=== PATIENT | female | born 1980 ===

== ENCOUNTER 2018-05-13 12:49 | Emergency (ER) | payer SELFPAY ==
[2018-05-13 12:49] VITALS: BMI 28.3
== END 2018-05-13 13:20 | disposition left against medical advice (07) ==
LOC: C.ER 12:49
DX: Z02.89 Encounter for other administrative examinations (principal); Z00.00 Encounter for general adult medical examination without abnormal findings

== ENCOUNTER 2018-05-13 13:35 | Inpatient (IN) | payer OTHER ==
[2018-05-13 13:36] VITALS: BMI 28.3
[2018-05-13 14:57] LABS: BASO % 0.9 % (0.0-2.0); EOS # 0.3 K/uL (0.0-0.7); EOS % 5.7 % (0.0-4.0); HEMOGLOBIN 10.2 g/dL (11.0-16.0); LYMPH # 1.8 K/uL (1.0-4.3); LYMPH % 37.8 % (20.0-40.0); MEAN CELL VOLUME 80.9 fL (81.0-99.0); MEAN CORPUSCULAR HEMOGLOBIN 26.4 pg (27.0-31.0); MEAN CORPUSCULAR HGB CONC 32.7 g/dL (33.0-37.0); MEAN PLATELET VOLUME 7.2 fL (7.2-11.7); MONO # 0.6 K/uL (0.0-0.8); NEUT # 2.1 K/uL (1.8-7.0); NEUT % 43.6 % (50.0-75.0); RBC 3.85 Mil/uL (3.80-5.20); RED CELL DISTRIBUTION WIDTH 16.7 % (11.5-14.5); WHITE BLOOD COUNT 4.8 K/uL (4.8-10.8)
[2018-05-13 14:57] LABS: HCG,QUALITATIVE URINE NEGATIVE (NEGATIVE)
[2018-05-13 15:08] LABS: ALB/GLOB RATIO 1.4 (1.0-2.1); ALT/SGPT 38 U/L (9-52); AST/SGOT 29 U/L (14-36); BLOOD UREA NITROGEN 22 mg/dL (7-17); CALCIUM 9.3 mg/dl (8.6-10.4); GFR NON-AFRICAN AMERICAN > 60
[2018-05-13 15:14] LABS: BARBITURATES, UR NEGATIVE (NEGATIVE); BENZODIAZEPINES, UR NEGATIVE (NEGATIVE); PHENCYCLIDINE, UR NEGATIVE (NEGATIVE)
[2018-05-13 15:22] LABS: OPIATES, UR POSITIVE (NEGATIVE); SQUAMOUS EPITHIAL 7 /hpf (0-5); URINE BACTERIA RARE (<OCC); URINE BILIRUBIN NEGATIVE (NEGATIVE); URINE BLOOD NEGATIVE (NEGATIVE); URINE CLARITY Hazy (Clear); URINE COLOR Yellow (YELLOW); URINE GLUCOSE (UA) NORMAL (Normal); URINE LEUKOCYTE ESTERASE TRACE Leu/uL (Negative); URINE PROTEIN NEGATIVE (NEGATIVE); URINE UROBILINOGEN NORMAL mg/dL (0.2-1.0)
--- NOTE | 2018-05-13 17:21 | PCM.BM ---
Treatment Plan Problems - Problems identified on initial assessmt altered family process Date Initiated: 05/13/18 Time Initiated: 17:19 Assessment reference: NA Status: Active chronic low self esteem Assessment reference: NA denial Date Initiated: 05/13/18 Time Initiated: 17:21 Assessment reference: NA Treatment assets and liabiliti Patient Assests: cooperative, educated, self-reliant, ADL independent, negotiates basic needs, cognitively intact Patient Liabilities: substance abuse - Milieu Protocol Maintain good personal hygiene: daily Encourage regular showers, daily Remind patient to perform daily oral care, daily Assist patient to perform ADL's Conduct patient checks and document Observation sheet: Q15 minutes Maintain personal safety: every shift Educate patient to report safety concerns to staff, every shift Monitor environment for contraband/sharps Medication safety: Monitor for expected outcome, potential side effects: every shift, Assess barriers to learning: every shift, Assess readiness for medication education: every shift
--- NOTE | 2018-05-13 20:47 | C.PDOC ---
History Of Present Illness 38 y/o female comes in requesting heroin detox. States she uses 30 bags a day IV. Last use was late last night. Denies chest pain, SOB, fever, or cough. Patient also denies alcohol and tobacco use. Chief Complaint (Nursing): Substance Abuse History Per: Patient History/Exam Limitations: no limitations Onset/Duration Of Symptoms: Days Current Symptoms Are (Timing): Still Present Past Medical History Reviewed: Historical Data, Nursing Documentation, Vital Signs Vital Signs: Last Vital Signs Temp 97.9 F 05/13/18 16:09 Pulse 64 05/13/18 16:09 Resp 18 05/13/18 16:09 BP 144/84 05/13/18 16:09 Pulse Ox 99 05/13/18 16:09 - Medical History PMH: Anxiety, Depression, HTN, Post Traumatic Stress Disorder Denies: Diabetes, Hepatitis, HIV, Chronic Kidney Disease, Seizures, Sexually Transmitted Disease Surgical History: Appendectomy Family History: States: No Known Family Hx - Social History Hx Alcohol Use: No Hx Substance Use: Yes Review Of Systems Except As Marked, All Systems Reviewed And Found Negative. Constitutional: Negative for: Fever Cardiovascular: Negative for: Chest Pain Respiratory: Negative for: Cough, Shortness of Breath Psych: Positive for: Other (Heroin abuse) Physical Exam - Physical Exam Appears: Non-toxic, No Acute Distress Skin: Warm, Dry Head: Atraumatic, Normacephalic Eye(s): bilateral: Normal Inspection Oral Mucosa: Moist Neck: Supple Cardiovascular: Rhythm Regular, No Murmur Respiratory: Normal Breath Sounds, No Rales, No Rhonchi, No Wheezing Gastrointestinal/Abdominal: Soft, No Tenderness Extremity: Other (Well healing track mckoy on both arms) Extremity: Bilateral: Normal Color And Temperature, Normal ROM Neurological/Psych: Oriented x3, Normal Speech ED Course And Treatment - Laboratory Results Result Diagrams: 05/13/18 14:53 05/13/18 14:53 Lab Results: Total Bilirubin 0.3 mg/dL (0.2-1.3) 05/13/18 14:53 AST 29 U/L (14-36) 05/13/18 14:53 ALT 38 U/L (9-52) 05/13/18 14:53 Alkaline Phosphatase 69 U/L (38-126) 05/13/18 14:53 Total Protein 7.0 g/dL (6.3-8.3) 05/13/18 14:53 Albumin 4.0 g/dL (3.5-5.0) 05/13/18 14:53 Globulin 2.9 gm/dL (2.2-3.9) 05/13/18 14:53 Albumin/Globulin Ratio 1.4 (1.0-2.1) 05/13/18 14:53 Urine Color Yellow (YELLOW) 05/13/18 14:44 Urine Clarity Hazy (Clear) 05/13/18 14:44 Urine pH 5.0 (5.0-8.0) 05/13/18 14:44 Ur Specific [place] 1.023 (1.003-1.030) 05/13/18 14:44 Urine Protein Negative mg/dL (NEGATIVE) 05/13/18 14:44 Urine Glucose (UA) Normal mg/dL (Normal) 05/13/18 14:44 Urine Ketones Negative mg/dL (NEGATIVE) 05/13/18 14:44 Urine Blood Negative (NEGATIVE) 05/13/18 14:44 Urine Nitrate Negative (NEGATIVE) 05/13/18 14:44 Urine Bilirubin Negative (NEGATIVE) 05/13/18 14:44 Urine Urobilinogen Normal mg/dL (0.2-1.0) 05/13/18 14:44 Ur Leukocyte Esterase Trace Ang/uL (Negative) 05/13/18 14:44 Urine WBC (Auto) 2 /hpf (0-5) 05/13/18 14:44 Urine RBC (Auto) 1 /hpf (0-3) 05/13/18 14:44 Ur Squamous Epith Cells 7 /hpf (0-5) H 05/13/18 14:44 Urine Bacteria Rare (<OCC) 05/13/18 14:44 Urine HCG, Qual Negative (NEGATIVE) 05/13/18 14:44 Urine HCG, Qual Negative (NEGATIVE) 05/13/18 14:44 O2 Sat by Pulse Oximetry: 99 (RA) Pulse Ox Interpretation: Normal Medical Decision Making Medical Decision Making: Plan: --Labs --UA --Catapres 0.1 mg PO --Imodium 2 mg PO --Zofran 4 mg PO --Maalox 30 ml PO Patient is medically cleared for evaluation. Disposition - Disposition Disposition: HOSPITALIZED Disposition Time: 15:25 Condition: STABLE - Clinical Impression Clinical Impression: Drug dependence - Scribe Statement The provider has reviewed the documentation as recorded by the Piyushibe Tawana Mg Provider Attestation: All medical record entries made by the Piyushibe were at my direction and personally dictated by me. I have reviewed the chart and agree that the record accurately reflects my personal performance of the history, physical exam, medical decision making, and the department course for this patient. I have also personally directed, reviewed, and agree with the discharge instructions and disposition.
[2018-05-14] MEDS ORDERED: Prazosin HCL 2 mg PO PRN (09:38)
[2018-05-14] MEDS: buPROPion 150 mg/24 Hours XL Tab PO SCH (10:44)
--- NOTE | 2018-05-14 10:57 | PCM.PSYCH ---
Initial Psychiatric Evaluation - Initial Psychiatric Evaluation Type of Admission: Voluntary Legal Status: Capacity Chief Complaint (in patient's own words): I want to detox from using heroin. 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 Patient states she has been using heroin for the past year following her son committing suicide. Patient states she uses 30 bags of heroin daily via IV. Her last use was 1 day prior to admission. Patient also admits to using a few bags of cocaine via IV. Patient has never tried detox, rehab. Patient has a history of anxiety, depression, and PTSD following the passing of her son. She was psychiatrically hospitalized a year ago at [facility] and received follow up care at her primary doctor in [facility]. Patient is unsure of her medications she is currently on. patient denies suicidal/homicidal thoughts, hallucinations. Patient denies tobacco and ETOH use. Patient presently is stating she is having back pain, chills, abdominal cramping. PMHx: None Meds: Unsure Allergies: NKDA PSHx: None Current Medications: Active Medications Generic Name Dose Route Start Last Admin Trade Name Freq PRN Reason Stop Dose Admin Al Hydrox/Mg Hydrox/Simethicone 30 ml 05/13/18 16:44 Maalox 30 Ml PO TID PRN Indigestion / Heartburn Bupropion HCl 150 mg 05/14/18 10:00 05/14/18 10:44 Wellbutrin Xl PO 150 mg DAILY KIEL Administration Clonidine HCl 0.1 mg 05/13/18 16:44 Catapres PO Q4 PRN COWS Score More or Equal to 5 Escitalopram Oxalate 5 mg 05/14/18 10:00 05/14/18 10:44 Lexapro PO 5 mg DAILY KIEL Administration Hydroxyzine HCl 50 mg 05/14/18 09:38 05/14/18 10:45 Atarax PO 50 mg Q6H PRN Administration Anxiety Loperamide HCl 2 mg 05/13/18 16:44 Imodium PO Q8 PRN Diarrhea Methadone HCl 20 mg 05/14/18 10:00 05/14/18 09:08 Methadone PO 05/18/18 09:59 20 mg Q24H KIEL Administration Taper Methadone HCl 5 mg 05/14/18 18:00 Methadone PO 05/18/18 18:01 QPM KIEL Ondansetron HCl 4 mg 05/13/18 16:44 Zofran Tab PO Q8 PRN Nausea/Vomiting Prazosin HCl 2 mg 05/14/18 09:38 Minipress PO HS PRN Insomnia Quetiapine Fumarate 50 mg 05/14/18 22:00 Seroquel PO HS KIEL Past Psychiatric History - Past Psychiatric History Previous Treatment History: Inpatient Prior Psychiatric Treatment: [facility] Pertinent Medical Hx (Current Medical&Sleep Prob, Allergies): Allergies Allergy/AdvReac Type Severity Reaction Status Date / Time No Known Allergies Allergy Verified 06/12/17 22:43 Atorvastatin [Lipitor] 10 mg PO DIN #7 tab 06/30/17 Bupropion HCl [Wellbutrin XL] 300 mg PO DAILY #14 t24 06/30/17 Multimineral/Multivitamin [Therapeutic-M Tab] 1 tab PO 0800 #7 tab 06/30/17 Paroxetine HCl [Paxil Cr] 50 mg PO HS #30 tab.er.24h 06/30/17 QUEtiapine [Seroquel] 25 mg PO HS PRN #14 tab 06/30/17 Zaleplon [Sonata] 15 mg PO HS PRN #45 cap 06/30/17 hydrOXYzine Pamoate [Vistaril] 50 mg PO TID PRN #45 cap 06/30/17 Review of Systems - Constitutional Constitutional: Chills, Sweats. absent: Fever, Weakness, Malaise - Psychiatric Psychiatric: Anxiety, Depression. absent: Difficulty Concentrating, Hallucinations, Homicidal Ideation, Mood Swings, Panic Attacks, Suicidal Ideation, Visual Hallucinations Mental Status Examination - Personal Presentation Personal Presentation: Looks stated age - Affect Affect: Broad - Motor Activity Motor Activity: Calm - Reliability in Providing Information Reliability in Providing Information: Good - Speech Speech: Organized - Mood Mood: Depressed - Formal Thought Process Formal Thought Process: No Impairment - Obsessions/Compulsions Obsessions: None Compulsions: None - Cognitive Functions Orientation: Person, Place, Situation, Time Sensorium: Alert - Strength & Assets Inventory Strength & Assets Inventory: Family support DSM 5 DX - DSM 5 DSM 5 Diagnosis: Opioid use disorder, severe Opioid withdrawal Cocaine use disorder, severe Cocaine withdrawal - Recommended/Plan of Treatment Treatment Recommendations and Plan of Treatment: Taper with Methadone Seroquel 50 mg PO HS Lexapro 5 mg PO daily Bupropion XL 150 mg PO daily PRN meds All risks, benefits and alternatives of the meds discussed, and the pt agreed and understood. Attend groups and activities Supportive therapy and psychoeducation GA for abstinence CBT for relapse prevention Encourage MAT Refer to rehab or IOP, and self-help groups Teach healthy lifestyle methods, i.e. diet, exercise, meditation Projected ELOS: 35
[2018-05-14] MEDS: Aluminum Hydroxide/Magnesium Hydroxide Susp (30 mL) PO PRN (19:35)
[2018-05-15] MEDS: buPROPion 150 mg/24 Hours XL Tab PO SCH (10:52)
--- NOTE | 2018-05-15 12:07 | PCM.PYCHPN ---
Psychiatric Progress Note - Psychiatric Progress Note Medication Change: Yes Medical Record Reviewed: Yes Mental Status Examination - Cognitive Function Orientation: Person, Place, Situation, Time - Mood Mood: Depressed - Affect Affect: Broad - Formal Thought Process Formal Thought Process: No Impairment
[2018-05-15] MEDS: Aluminum Hydroxide/Magnesium Hydroxide Susp (30 mL) PO PRN (21:01)
[2018-05-16] MEDS: buPROPion 150 mg/24 Hours XL Tab PO SCH (10:48)
[2018-05-16 20:22] VITALS: O2SAT 100
--- NOTE | 2018-05-17 09:34 | PCM.PYCHDC ---
Mental Status Examination - Mental Status Examination Orientation: Person, Place, Situation, Time Memory: Intact Mood: Anxious Affect: Constricted Speech: Appropriate Attention: WNL Concentration: WNL Association: WNL Fund of Knowledge: WNL Formal Thought Process: No Impairment Suicidal Ideation: No Current Homicidal Ideation?: No Discharge Summary - Discharge Note Consultations:: List each consultation separately and include: 1. Reason for request. 2. Findings. 3. Follow-up Summary of Hospital Course include:: 1. Description of specific treatment plan utilized for patients during their course of treatmen. 2. Summarize the time- course for resolution of acute symptoms and/or regressed behaviors. 3. Describe issues identified and worked on during hospitalization. 4. Describe medication utilized. 5. Describe medical problems identified and treated. 6. Reassessment of suicide risk Summary of Hospital Course: Hospital course: The pt was admitted and started on treatment with psychotherapy, support, psychoeducation and medications. VT and CBT used. The pt attended groups and activities, as well as milieu therapy. All the risks and benefits of medications are discussed and the patient understood and agreed. The pt improved with the treatments provided. After care discussed with the patient. She will go to an [facility] but has no insurance at this point. She will attend . She also left a day early - to be with her today (?) - risks incl. relapse and even discussed - Final Diagnosis (DSM 5) Condition upon Discharge: STABLE DSM 5: Opioid use disorder, severe Opioid withdrawal Cocaine use disorder, severe Cocaine withdrawal Disposition: HOME/ ROUTINE Follow-up Treatment Plan: Continue below medications after discharge. Follow after care plan as discussed. Use relapse prevention skills Return to ER or call 911 if suicidal, homicidal or symptoms relapse. Stay away from stress, alcohol and drugs. See primary doctor regularly and get labs. Prescriptions/Medication Reconciliation: buPROPion XL [Wellbutrin XL] 150 mg PO DAILY #30 t24 Escitalopram [Lexapro] 10 mg PO DAILY #30 tab hydrOXYzine HCl [Atarax] 50 mg PO BID PRN #30 tab PRN Reason: Anxiety Prazosin HCL [Minipress] 2 mg PO HS PRN #30 cap PRN Reason: Insomnia QUEtiapine [SEROquel] 50 mg PO HS #30 tab
[2018-05-17] MEDS: buPROPion 150 mg/24 Hours XL Tab PO SCH (09:52)
[2018-05-17 10:18] VITALS: BP 134/84; PULSE 96; RESP 16; TEMP 97.6
== END 2018-05-17 10:10 | disposition home or self-care (01) | DRG 772 ==
LOC: C.ER 13:35 → C.7D 15:41
PROVIDERS: ADMIT Psychiatry & Neurology Psychiatry; ATTEND Psychiatry & Neurology Psychiatry
PROC: HZ2ZZZZ Detoxification Services for Substance Abuse Treatment (ICD-10-PCS; principal; 2018-05-13)
PROC: HZ42ZZZ Group Counseling for Substance Abuse Treatment, Cognitive-Behavioral (ICD-10-PCS; 2018-05-13)
PROC: HZ52ZZZ Individual Psychotherapy for Substance Abuse Treatment, Cognitive-Behavioral (ICD-10-PCS; 2018-05-13)
PROC: HZ59ZZZ Individual Psychotherapy for Substance Abuse Treatment, Supportive (ICD-10-PCS; 2018-05-13)
PROC: HZ56ZZZ Individual Psychotherapy for Substance Abuse Treatment, Psychoeducation (ICD-10-PCS; 2018-05-13)
PROC: HZ46ZZZ Group Counseling for Substance Abuse Treatment, Psychoeducation (ICD-10-PCS; 2018-05-13)
PROC: GZHZZZZ Group Psychotherapy (ICD-10-PCS; 2018-05-13)
PROC: GZ58ZZZ Individual Psychotherapy, Cognitive-Behavioral (ICD-10-PCS; 2018-05-13)
PROC: GZ56ZZZ Individual Psychotherapy, Supportive (ICD-10-PCS; 2018-05-13)
DX: F11.23 Opioid dependence with withdrawal (principal); I10 Essential (primary) hypertension; F43.10 Post-traumatic stress disorder, unspecified; F41.1 Generalized anxiety disorder; F41.0 Panic disorder [episodic paroxysmal anxiety]; G47.00 Insomnia, unspecified; F14.23 Cocaine dependence with withdrawal

== ENCOUNTER 2018-06-26 14:48 | Emergency (ER) | payer OTHER ==
[2018-06-26 14:48] VITALS: BMI 28.3
[2018-06-26 14:55] VITALS: RESP 17
--- NOTE | 2018-06-26 15:12 | C.PDOC ---
History Of Present Illness 38 y/o female pt presents to the ER requesting a detox for heroin. Pt uses 20 bags of heroin a day via IV to the bilateral antecubital fossa. Last use was this morning. Pt has no other complaints or associated sx. Time Seen by Provider: 06/26/18 14:57 Chief Complaint (Nursing): Substance Abuse History/Exam Limitations: no limitations Onset/Duration Of Symptoms: Days Current Symptoms Are (Timing): Still Present Modifying Factor(s): Other (heroin) Past Medical History Reviewed: Historical Data, Nursing Documentation, Vital Signs Vital Signs: Last Vital Signs Temp 98.7 F 06/26/18 14:51 Pulse 73 06/26/18 14:51 Resp 17 06/26/18 14:51 BP 133/84 06/26/18 14:51 Pulse Ox 97 06/26/18 14:51 - Medical History PMH: Anxiety, Depression, HTN, Post Traumatic Stress Disorder Surgical History: Appendectomy - [facility] DETOXIFICATION SERVICES FOR SUBSTANCE ABUSE TREATMENT (05/13/18) GROUP RADIO BOARD OPERATOR FOR SUBSTANCE ABUSE TREATMENT, PSYCHOEDUCATION (05/13/18) GROUP RADIO BOARD OPERATOR FOR SUBSTANCE ABUSE, COGNITIVE BEHAVIORAL (05/13/18) GROUP PSYCHOTHERAPY (05/13/18) INDIV PSYCHOTHERAPY FOR SUBSTANCE ABUSE TREATMENT, SUPPORT (05/13/18) INDIV PSYCHOTHERAPY FOR SUBSTANCE ABUSE, COGNITIV BEHAVIORAL (05/13/18) INDIV PSYCHOTHERAPY FOR SUBSTANCE ABUSE, PSYCHOEDUCATION (05/13/18) INDIVIDUAL PSYCHOTHERAPY, COGNITIVE-BEHAVIORAL (05/13/18) INDIVIDUAL PSYCHOTHERAPY, SUPPORTIVE (05/13/18) Family History: States: No Known Family Hx - Social History Hx Alcohol Use: No Hx Substance Use: Yes - Immunization History Hx Tetanus Toxoid Vaccination: No Hx Influenza Vaccination: No Hx Pneumococcal Vaccination: No Review Of Systems Except As Marked, All Systems Reviewed And Found Negative. Constitutional: Positive for: Other (requesting heroin detox ). Negative for: Fever Cardiovascular: Negative for: Chest Pain Respiratory: Negative for: Cough Gastrointestinal: Negative for: Nausea, Vomiting Genitourinary: Negative for: Dysuria, Frequency Neurological: Negative for: Weakness, Numbness Physical Exam - Physical Exam Appears: Non-toxic, No Acute Distress Skin: Warm, Dry, No Rash, Other (track mckoy on bilateral antecubital fossa) Head: Atraumatic, Normacephalic Eye(s): bilateral: Other (bilateral antecubital fossa) Oral Mucosa: Moist Throat: Normal Neck: Normal ROM, Supple Chest: Symmetrical Cardiovascular: Rhythm Regular Respiratory: Normal Breath Sounds Gastrointestinal/Abdominal: Soft, No Tenderness Back: No CVA Tenderness Neurological/Psych: Oriented x3, Normal Speech ED Course And Treatment O2 Sat by Pulse Oximetry: 97 (RA) Pulse Ox Interpretation: Normal Medical Decision Making Medical Decision Making: Plans: -- chem labs -- blood work -- UA -- Crisis consult spoke with crisis, no detox bed is available Disposition Doctor Will See Patient In The: Office Counseled Patient/Family Regarding: Studies Performed, Diagnosis - Disposition Referrals: [facility] [Outside] [facility] [Outside] Count includes the [facility] [place] [Outside] [facility] [Outside] [facility] [Outside] Disposition: HOME/ ROUTINE Disposition Time: 15:15 Condition: GOOD Additional Instructions: continue to seek Detox programs call to follow-up for pre-screen availability Keep Narcan on your person and carried by your friends and family to treat you in case of overdose Prescriptions: Naloxone HCl [Narcan] 4 mg NS ONCE PRN #1 spray PRN Reason: narcotics overdose Instructions: Narcotic Overdose , Opioid Use Disorder Forms: [employer] (French) - Clinical Impression Clinical Impression: Opioid use disorder, severe, dependence - Scribe Statement The provider has reviewed the documentation as recorded by the Scribtian Friedman Do Provider Attestation: All medical record entries made by the Scribe were at my direction and personally dictated by me. I have reviewed the chart and agree that the record accurately reflects my personal performance of the history, physical exam, medical decision making, and the department course for this patient. I have also personally directed, reviewed, and agree with the discharge instructions and disposition.
[2018-06-26 15:33] VITALS: BP 111/78; PULSE 98; TEMP 98.6
[2018-06-26 15:50] VITALS: O2SAT 97
== END 2018-06-26 15:30 | disposition home or self-care (01) ==
LOC: C.ER 14:48
DX: F11.20 Opioid dependence, uncomplicated (principal)